=== PATIENT | female | born 1975 | race Two or more races ===

== ENCOUNTER 2017-12-04 20:54 | Emergency (ER) | payer OTHER ==
[~2017-12-04] VITALS: Ht 167.6 cm; Wt 74.8 kg
[2017-12-04] MEDS ORDERED: LIDOCAINE 1% INJ 50 ML MDV IJ STA (21:16)
[2017-12-04] MEDS ORDERED: CEPHALEXIN MONOHYDRATE 500 MG CAPSULE PO STA (21:16)
[2017-12-04] MEDS ORDERED: SULFAMETH/TRIMETH 800/160 MG 1 UDTAB TABLET PO STA (21:16)
[2017-12-04] MEDS ORDERED: SULFAMETH/TRIMETH 800/160 MG 1 UDTAB TABLET PO ONE (21:22)
[2017-12-04] MEDS ORDERED: LIDOCAINE HCL/PF 1% 30 ML SDV ONE (21:22)
[2017-12-04] MEDS ORDERED: CEPHALEXIN MONOHYDRATE 500 MG CAPSULE PO ONE (21:22)
--- NOTE | 2017-12-04 21:27 | NUR ---
PT REC'D MEDICATION ORDERED. [employer] IS AT THE BEDSIDE FOR RT GREAT TOE NAIL REMOVAL. TOE IS RED AND WARM TO TOUCH. PT ALSO HAS REDNESS NOTED ON RT EXTERIOR NARE.
--- NOTE | 2017-12-04 22:00 | NUR ---
Patient discharged to home in stable condition. Written and verbal after care instructions given. Patient verbalizes understanding of instruction AND RX. PT'S GREAT TOE WAS DRESSED. PT AMBULATED OUT WITH A STEADY GAIT. VSS.
[2017-12-04 22:04] VITALS: BP 136/85
== END 2017-12-04 22:04 | disposition home or self-care (01) ==
LOC: ER 20:54
DX: L60.0 Ingrowing nail (principal); L03.031 Cellulitis of right toe
CPT/HCPCS: 11730; A4606; A6402; J3490; Z7610